=== PATIENT | female | born 1950 | race Caucasian/White ===

== ENCOUNTER 2016-07-14 07:59 | Emergency (ER) | payer BC ==
[2016-07-14 08:16] VITALS: BP 124/87
[2016-07-14] MEDS ORDERED: Sodium Chloride 0.9% 10 ML Syringe FLUSH PRN (08:23)
--- NOTE | 2016-07-14 08:43 | EDM.PDOC ---
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 Pt reports onset of "heartburn" last evening that was persistent throughout the night and continues now. 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 She admits to intense sharp chest pain with coughing, and to shortness of breath at rest. Denies fever, chills, N/V, edema, wheezing, palpitations, hemoptysis, sore throat, rash, petechiae, headache, lightheadedness, syncope, or near syncope. She denies aspiration of food or solids, but states that she very well may have aspirated "stomach acid" during the night. 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) (Protonix) - Related Data Allergies/ADRs: Allergies Allergy/AdvReac Type Severity Reaction Status Date / Time aspirin Allergy Other Verified 07/14/16 08:10 Home Meds: Home Meds [place]-3 Fatty Acids [Fish Oil] 500 mg PO DAILY 12/23/15 [History] Pantoprazole [Protonix] 40 mg PO ACBREAKFAST 12/23/15 [History] Venlafaxine [Effexor XR 24 Hr] 75 mg PO DAILY 12/23/15 [History] Cholecalciferol (Vitamin D3) [Vitamin D3] 1,000 unit PO DAILY 01/10/16 [History] Cyclobenzaprine [Flexeril] 10 mg PO ASDIRECTED PRN 01/10/16 [History] Loratadine [Claritin] 10 mg PO DAILY PRN 01/10/16 [History] Triamterene/Hydrochlorothiazid [Triamterene-HCTZ 37.5-25 MG] 1 tab PO DAILY 01/15 [History] atorvaSTATin [Lipitor] 20 mg PO DAILY 01/10/16 [History] Past Medical History HEENT History: Reports: Impaired vision Other HEENT History: WEARS CORRECTIVE LENSES Cardiovascular History: Reports: High cholesterol, Hypertension Respiratory History: Reports: None Gastrointestinal History: Reports: GERD, PUD Genitourinary History: Reports: None Musculoskeletal History: Reports: Other (see below) Other Musculoskeletal History: CHRONIC BACK PAIN, broken wrist Neurological History: Reports: Migraines Psychiatric History: Reports: None Endocrine/Metabolic History: Reports: None Hematologic History: Reports: None Immunologic History: Reports: None Oncologic (Cancer) History: Reports: None Dermatologic History: Reports: None - Infectious Disease History Infectious Disease History: Reports: Chicken pox, Measles, Mumps - Past Surgical History HEENT Surgical History: Reports: Adenoidectomy, Tonsillectomy GI Surgical History: Reports: EGD Female Surgical History: Reports: Breast reduction, Tubal ligation Neurological Surgical History: Reports: C-Spine, Lumbar spine Musculoskeletal Surgical History: Reports: Other (see below) Other Musculoskeletal Surgeries/Procedures:: "neck and back surgery Social & Family History - Family History Family Medical History: Noncontributory - Tobacco Use Smoking Status *Q: Never Smoker Used Tobacco, but Quit: No Second Hand Smoke Exposure: No - Caffeine Use Caffeine Use: Reports: Coffee - Alcohol Use Days Per Week of Alcohol Use: 7 Number of Drinks Per Day: 1 Total Drinks Per Week: 7 Date of Last Drink: 07/13/16 - Recreational Drug Use Recreational Drug Use: No - Living Situation & Occupation Living situation: Reports: , with spouse Occupation: employed ED ROS GENERAL - Review of Systems Review Of Systems: ROS reveals no pertinent complaints other than HPI. ED EXAM, GENERAL - Physical Exam Exam: See Below Exam Limited By: No limitations General Appearance: alert, WD/WN, no apparent distress, anxious, other ( uncomfortable & acutely ill appearing) Eye Exam: bilateral eye: normal inspection Ears: normal external exam, hearing grossly normal Nose: no blood, nasal drainage (mild clear nasal drainage) Throat/Mouth: Normal inspection, Normal lips, Normal teeth, Normal gums, Normal oropharynx, Normal voice, No airway compromise Head: atraumatic, normocephalic Neck: normal inspection, supple, non-tender, full range of motion. No: lymphadenopathy (L), lymphadenopathy (R) Respiratory/Chest: no respiratory distress, no accessory muscle use, chest non- tender, decreased breath sounds, crackles (bibasilar), rhonchi (intermittent bibasilar L>R). No: rales, wheezing, pleural rub Cardiovascular: normal peripheral pulses, regular rate, rhythm, no edema, no gallop, no JVD, no murmur, no rub GI/Abdominal: normal bowel sounds, soft, no organomegaly, no distention, tender (epigastric, mild) (Female) Exam: Deferred Rectal (Female) Exam: Deferred Back Exam: normal inspection, full range of motion. No: CVA tenderness (L), CVA tenderness (R) Extremities: normal inspection, normal range of motion, non-tender, normal capillary refill, no pedal edema Neurological: alert, oriented, CN II-XII intact, normal cognition, normal gait, no motor/sensory deficits Psychiatric: anxious Skin Exam: Warm, Dry, Intact, Normal color, No rash EKG INTERPRETATION EKG Date: 07/14/16 Time: 08:12 Rhythm: other (SR) Rate (beats/min): 92 [place]: normal P-wave: present QRS: other (isolated Q-wave in lead III) ST-T: normal QT: normal Comparison: NA - no prior EKG EKG Interpretation Comments: No acute ischemic changes. Course - Vital Signs Last Recorded V/S: Last Vital Signs Temp 36.2 C 07/14/16 08:11 Pulse 90 07/14/16 08:56 Resp 20 07/14/16 08:11 BP 124/87 07/14/16 08:11 Pulse Ox 94 L 07/14/16 08:56 - Orders/Labs/Meds Orders: Active Orders 24 hr Category Date Time Status EKG 12 Lead [EKG Documentation Completion] [RC] STAT Care 07/14/16 08:23 Active EKG Documentation Completion [RC] STAT Care 07/14/16 08:10 Active Incentive Spirometry [RT Incentive Spirometry] [RC] Care 07/14/16 09:46 Ordered ASDIRECTED Peripheral IV Care [RC] . DIRECTED Care 07/14/16 08:23 Active RT Aerosol Therapy [RC] ASDIRECTED Care 07/14/16 08:48 Active RT Post Treatment Assessment [RC] Click To Edit Care 07/14/16 09:47 Ordered RT Pre-Treatment Assessment [RC] Click To Edit Care 07/14/16 09:47 Ordered Chest w Cont [CT] Stat Exams 07/14/16 08:47 Taken CULTURE BLOOD [BC] Stat Lab 07/14/16 08:50 Received CULTURE BLOOD [] Stat Lab 07/14/16 08:54 Received CULTURE STREP A CONFIRMATION [] Stat Lab 07/14/16 09:07 Results STREP SCRN A RAPID W CULT CONF [] Stat Lab 07/14/16 09:07 Results Piperacillin/Tazobactam [Zosyn] 3.375 gm Med 07/14/16 09:33 Active Sodium Chloride 0.9% [Normal Saline] 100 ml IV ONETIME Sodium Chloride 0.9% [Normal Saline] 1,000 ml Med 07/14/16 09:33 Active IV .BOLUS Sodium Chloride 0.9% [Saline Flush] Med 07/14/16 08:23 Active 10 ml FLUSH ASDIRECTED PRN Blood Culture x2 Reflex Set [OM.PC] Stat Oth 07/14/16 08:42 Ordered Peripheral IV Insertion Adult [OM.PC] Stat Oth 07/14/16 08:23 Ordered Medication Orders Piperacillin Sod/Tazobactam (Sod 3.375 gm/ Sodium Chloride) 100 mls @ 200 mls/ hr IV ONETIME ONE Stop: 07/14/16 10:02 Last Admin: 07/14/16 09:47 Dose: 200 mls/hr Sodium Chloride (Normal Saline) 1,000 mls @ 999 mls/hr IV .BOLUS ONE Stop: 07/14/16 10:33 Last Admin: 07/14/16 09:39 Dose: 999 mls/hr Sodium Chloride (Saline Flush) 10 ml FLUSH ASDIRECTED PRN PRN Reason: Keep Vein Open Last Admin: 07/14/16 09:39 Dose: 10 ml Labs: Laboratory Tests 07/14/16 07/14/16 07/14/16 Range/Units 08:35 08:35 08:35 WBC 9.3 (5.0-10.0) 10^3/uL RBC 4.39 (4.2-5.4) 10^6/uL Hgb 13.8 (12.0-16.0) g/dL Hct 40.3 (37.0-47.0) % MCV 91.8 (80-100) fL MCH 31.4 (27.0-34.0) pg MCHC 34.2 (33.0-35.0) g/dL Plt Count 213 (150-450) 10^3/uL Neut % (Auto) 73.0 (42.2-75.2) % Lymph % (Auto) 17.8 L (20.5-50.1) % [place] % (Auto) 8.2 H (2-8) % Eos % (Auto) 0.9 L (1.0-3.0) % Baso % (Auto) 0.1 (0.0-1.0) % Sodium 140 (135-145) mmol/L Potassium 3.6 (3.6-5.0) mmol/L Chloride 106 (101-111) mmol/L Carbon Dioxide 25.0 (21.0-31.0) mmol/L Anion Gap 12.6 BUN 21 H (7-18) mg/dL Creatinine 1.1 (0.6-1.3) mg/dL Est Cr Clr Drug Dosing 43.44 mL/min Estimated GFR (MDRD) 50 BUN/Creatinine Ratio 19.09 Glucose 106 H (74-105) mg/dL Lactic Acid (0.5-2.2) mmol/L Calcium 9.3 (8.4-10.2) mg/dl Total Bilirubin 0.2 (0.2-1.0) mg/dL AST 40 (10-42) IU/L ALT 30 (10-60) IU/L Alkaline Phosphatase 59 (42-121) IU/L Total Protein 7.3 (6.7-8.2) g/dl Albumin 4.1 (3.2-5.5) g/dl Globulin 3.2 Albumin/Globulin Ratio 1.28 Amylase 75 (28-100) U/L Lipase 54 H (22-51) U/L 07/14/16 Range/Units 08:50 WBC (5.0-10.0) 10^3/uL RBC (4.2-5.4) 10^6/uL Hgb (12.0-16.0) g/dL Hct (37.0-47.0) % MCV (80-100) fL MCH (27.0-34.0) pg MCHC (33.0-35.0) g/dL Plt Count (150-450) 10^3/uL Neut % (Auto) (42.2-75.2) % Lymph % (Auto) (20.5-50.1) % [place] % (Auto) (2-8) % Eos % (Auto) (1.0-3.0) % Baso % (Auto) (0.0-1.0) % Sodium (135-145) mmol/L Potassium (3.6-5.0) mmol/L Chloride (101-111) mmol/L Carbon Dioxide (21.0-31.0) mmol/L Anion Gap BUN (7-18) mg/dL Creatinine (0.6-1.3) mg/dL Est Cr Clr Drug Dosing mL/min Estimated GFR (MDRD) BUN/Creatinine Ratio Glucose (74-105) mg/dL Lactic Acid 1.3 (0.5-2.2) mmol/L Calcium (8.4-10.2) mg/dl Total Bilirubin (0.2-1.0) mg/dL AST (10-42) IU/L ALT (10-60) IU/L Alkaline Phosphatase (42-121) IU/L Total Protein (6.7-8.2) g/dl Albumin (3.2-5.5) g/dl Globulin Albumin/Globulin Ratio Amylase (28-100) U/L Lipase (22-51) U/L Meds: Medications Generic Name Dose Route Start Last Admin Trade Name Freq PRN Reason Stop Dose Admin Piperacillin Sod/Tazobactam 100 mls @ 200 mls/hr 07/14/16 09:33 07/14/16 09: 47 Sod 3.375 gm/ Sodium Chloride IV 07/14/16 10:02 200 mls/hr ONETIME ONE Administration Sodium Chloride 1,000 mls @ 999 mls/hr 07/14/16 09:33 07/14/16 09:39 Normal Saline IV 07/14/16 10:33 999 mls/hr .BOLUS ONE Administration Sodium Chloride 10 ml 07/14/16 08:23 07/14/16 09:39 Saline Flush FLUSH 10 ml ASDIRECTED PRN Administration Keep Vein Open Discontinued Medications Generic Name Dose Route Start Last Admin Trade Name Freq PRN Reason Stop Dose Admin Albuterol 6.7 gm 07/14/16 09:47 Proventil Hfa INH 07/14/16 09:48 ONETIME ONE Albuterol/Ipratropium 3 ml 07/14/16 08:48 07/14/16 08:54 Duoneb 3.0-0.5 Mg/3 Ml NEB 07/14/16 08:49 3 ml ONETIME ONE Administration Benzonatate 200 mg 07/14/16 09:48 Tessalon Perles PO 07/14/16 09:49 ONETIME ONE Iopamidol 100 ml 07/14/16 08:48 07/14/16 09:22 Isovue-370 (76%) IVPUSH 07/14/16 08:49 65 ml ONETIME ONE Administration Piperacillin Sod/Tazobactam Sod Confirm 07/14/16 09:35 07/14/16 09:47 Zosyn Administered 07/14/16 09:36 Not Given Dose 3.375 gm .ROUTE .STK-MED ONE Pt reports improved SOB and cough following DuoNeb tx. - Radiology Interpretation Free Text/Narrative:: 2V CXR: Asymmetric new anterior segment LLL atelectasis vs infiltrate or infarct per Rad. report. CT Chest w/contrast: No P.E., left ML atelectasis/bronchiectasis, small hiatal hernia, see Rad. report. CT Results Date: 07/14/16 - Re-Assessments/Exams Free Text/Narrative Re-Assessment/Exam: 07/14/16 09:50 I explained the exam findings, results of all diagnostic tests, working diagnosis, and any potential or additionally considered diagnoses, treatment/ disposition plan, self/home care instructions, rational for the diagnosis/ treatment plan/disposition plan, anticipated course of illness, and follow up instructions to the pt and/or pts family or guardian. The pt and/or pts family or guardian acknowledges understanding of the above explanation(s), and of the signs and symptoms which should prompt the return of the pt to the ER should those or any other concerning symptoms develop. Departure - Departure Time of Disposition: 09:53 Disposition: Home, Self-Care 01 Condition: fair Clinical Impression: Atypical chest pain, Acute bronchitis with bronchospasm, Hiatal hernia Aspiration into airway Qualifiers: Encounter type: initial encounter Qualified Code(s): T17.908A - Unspecified foreign body in respiratory tract, part unspecified causing other injury, initial encounter Gastroesophageal reflux disease Qualifiers: Esophagitis presence: esophagitis presence not specified Qualified Code(s): K21.9 - Gastro-esophageal reflux disease without esophagitis Instructions: Acute Bronchitis, Bronchospasm, Adult, Hiatal Hernia Forms: ED Department Discharge Additional Instructions: Rx: Clindamycin 300mg Rx: Z-Igor 250mg Continue Protonix as prescribed. Follow up in clinic in 3 to 4 days for recheck. Return to ER if worse at any time. - My Orders Last 24 Hours: My Active Orders 07/14/16 08:10 EKG Documentation Completion [RC] STAT 07/14/16 08:23 EKG 12 Lead [EKG Documentation Completion] [RC] STAT Peripheral IV Care [RC] . DIRECTED Sodium Chloride 0.9% [Saline Flush] 10 ml FLUSH ASDIRECTED PRN Peripheral IV Insertion Adult [OM.PC] Stat 07/14/16 08:42 Blood Culture x2 Reflex Set [OM.PC] Stat 07/14/16 08:47 Chest w Cont [CT] Stat 07/14/16 08:48 RT Aerosol Therapy [RC] ASDIRECTED 07/14/16 08:50 CULTURE BLOOD [BC] Stat 07/14/16 08:54 CULTURE BLOOD [BC] Stat 07/14/16 09:07 CULTURE STREP A CONFIRMATION [RM] Stat STREP SCRN A RAPID W CULT CONF [RM] Stat 07/14/16 09:33 Piperacillin/Tazobactam [Zosyn] 3.375 gm Sodium Chloride 0.9% [Normal Saline] 100 ml IV ONETIME Sodium Chloride 0.9% [Normal Saline] 1,000 ml IV .BOLUS 07/14/16 09:46 Incentive Spirometry [RT Incentive Spirometry] [RC] ASDIRECTED 07/14/16 09:47 RT Post Treatment Assessment [RC] Click To Edit RT Pre-Treatment Assessment [RC] Click To Edit - Assessment/Plan Last 24 Hours: My Active Orders 07/14/16 08:10 EKG Documentation Completion [RC] STAT 07/14/16 08:23 EKG 12 Lead [EKG Documentation Completion] [RC] STAT Peripheral IV Care [RC] . DIRECTED Sodium Chloride 0.9% [Saline Flush] 10 ml FLUSH ASDIRECTED PRN Peripheral IV Insertion Adult [OM.PC] Stat 07/14/16 08:42 Blood Culture x2 Reflex Set [OM.PC] Stat 07/14/16 08:47 Chest w Cont [CT] Stat 07/14/16 08:48 RT Aerosol Therapy [RC] ASDIRECTED 07/14/16 08:50 CULTURE BLOOD [BC] Stat 07/14/16 08:54 CULTURE BLOOD [BC] Stat 07/14/16 09:07 CULTURE STREP A CONFIRMATION [RM] Stat STREP SCRN A RAPID W CULT CONF [RM] Stat 07/14/16 09:33 Piperacillin/Tazobactam [Zosyn] 3.375 gm Sodium Chloride 0.9% [Normal Saline] 100 ml IV ONETIME Sodium Chloride 0.9% [Normal Saline] 1,000 ml IV .BOLUS 07/14/16 09:46 Incentive Spirometry [RT Incentive Spirometry] [RC] ASDIRECTED 07/14/16 09:47 RT Post Treatment Assessment [RC] Click To Edit RT Pre-Treatment Assessment [RC] Click To Edit
[2016-07-14] MEDS ORDERED: Iopamidol 755 Mg/ML 100 ML Bottle IVPUSH ONE (08:48)
[2016-07-14] MEDS ORDERED: Albuterol/Ipratropium 3.0-0.5 MG/3 ML Neb Soln NEB ONE (08:48)
--- NOTE | 2016-07-14 08:48 | CR ---
Clinical history: 66-year-old female cough, chest pain (O2 sat 94%) and tachycardia. Interpretation: Abnormal. Asymmetric new anterior segment left lower lobe atelectasis, infiltrate or infarct (compared to 22 S eptember 2016 film). Normal cardiac silhouette without cephalization of vascular flow, signs of alveolar edema or depende nt effusion. No lung mass, hilar lymphadenopathy or other focal lobar consolidation.
[2016-07-14] MEDS ORDERED: Piperacillin/Tazobactam 3.375 GM in Sodium Chloride 0.9% 100 ML IV ONE (09:33)
[2016-07-14] MEDS ORDERED: Sodium Chloride 0.9% 1,000 ML IV ONE (09:33)
[2016-07-14] MEDS ORDERED: Albuterol 6.7 GM Inhaler INH ONE (09:47)
[2016-07-14] MEDS ORDERED: Benzonatate 100 MG Cap PO ONE (09:48)
--- NOTE | 2016-07-14 10:02 | CT ---
CLINICAL HISTORY: 66-year-old female with chest pain, cough, decreased O2 saturation and tachycardia . Rule out pulmonary embolism or other thoracic abnormality ("new left lower lobe consolidation"). SCAN TECHNIQUE: Volume acquisition of data from chest (thorax, lung and mediastinum) obtained during the intravenous administration of 65 cc nonionic Isovue 370 contrast (5 cc/sec via injector) while the patient was lying supine on the Siemens multislice CT scanner [place], [place]. All data archived in the PACS system for storage, reformatting and study. INTERPRETATION: 1. Hiatus hernia incarcerated in the lower middle mediastinum. 2. Peribronchial "cuffing" and patchy anterior segment left lower lobe atelectasis (aspiration?). 3. Normal cardiac silhouette without cephalization of vascular flow, signs of alveolar edema or depe ndent pleural effusion. Normal caliber thoracic aorta (no aneurysm or dissection). 4. No lung mass or hilar or mediastinal lymphadenopathy. No lobar pneumonia. Several small right ulises g cysts. 5. No sign of intraluminal filling defect or thrombus. No peripheral pleural-based wedge shaped infa rcts, lobar consolidation or pleural effusions, i.e., low or no risk for pulmonary embolism. 6. Incidentally noted normal gallbladder, liver, spleen and pancreas. CONCLUSION: Hiatus hernia. Bronchitis and left lower lobe atelectasis. No lobar pneumonia, lung mass or pulmonary embolism.
--- NOTE | 2016-07-18 13:16 | EKG ---
07/14/2016 - REFUGIO JACOB - TIME: 8:12 a.m. EKG per my reading shows sinus rhythm with no acute ST changes. [facility] /[id number]
== END 2016-07-14 11:03 | disposition home or self-care (01) ==
LOC: DL.ED 07:59
DX: J20.9 Acute bronchitis, unspecified (principal); K44.9 Diaphragmatic hernia without obstruction or gangrene; K21.9 Gastro-esophageal reflux disease without esophagitis; T17.908A Unspecified foreign body in respiratory tract, part unspecified causing other injury, initial encounter; E78.00 Pure hypercholesterolemia, unspecified; I10 Essential (primary) hypertension; Z88.6 Allergy status to analgesic agent; Z79.899 Other long term (current) drug therapy; Z98.890 Other specified postprocedural states; Z98.51 Tubal ligation status
CPT/HCPCS: 36415; 71020; 71260; 80053; 82150; 83605; 83690; 85025; 87040; 87081; 87430; 93005; 94010; 94640; 99285; A9270; J2543; J7030; J7050; Q9967

== ENCOUNTER 2017-10-09 07:56 | Day surgery (SDC) | payer MEDICARE, BC ==
[2017-10-09] MEDS ORDERED: Midazolam 1 MG/ML 2 ML SDV IV ONE ×9 (07:57→09:25)
[2017-10-09] MEDS ORDERED: fentaNYL 100 MCG/2 ML SDV IV ONE ×4 (07:57→09:13)
[2017-10-09] MEDS ORDERED: Dextrose 5%-0.45% NaCl 1,000 ML IV SCH (08:15)
[2017-10-09] MEDS ORDERED: Benzocaine 20% Oral Spray 59.2 ML Canister MUCMEM ONE (08:34)
[2017-10-09] MEDS ORDERED: fentaNYL 100 MCG/2 ML SDV ONE (08:41)
[2017-10-09] MEDS ORDERED: Midazolam 1 MG/ML 2 ML SDV ONE (08:41)
[2017-10-09] MEDS ORDERED: Benzocaine 20% Oral Spray 59.2 ML Canister ONE (08:42)
[2017-10-09 11:55] VITALS: BP 105/57
--- NOTE | 2017-10-09 12:23 | OR ---
DATE: 10/09/2017 INDICATION FOR PROCEDURE: This is a 67-year-old female presents for colonoscopy. She has change of bowel function and some incontinence. POSTOPERATIVE DIAGNOSIS: This is a 67-year-old female, presents for colonoscopy. She has change of bowel function and some incontinence. PROCEDURE: Total colonoscopy. ANESTHESIA: Conscious sedation with IV Versed and fentanyl. SPECIMEN: None. FINDINGS: Normal colonoscopy. RECOMMENDATION: Followup colonoscopy as needed for symptoms. DESCRIPTION OF PROCEDURE: After adequate preparation, a colonoscope was inserted into the rectum. This was quite difficult to advance all the way to the cecum that had a very difficult time keeping the colon straight to advance the scope and multiple loops were formed as the scope advanced. I withdrew the scope into the rectum 2 different times to be able to keep the colon from looping. Eventually, I was able to pass this all the way to the cecum and confirmation of the cecum was made by visualization of the ileocecal valve and palpation in the right lower quadrant. The bowel prep was adequate. On withdrawal of the scope, no abnormalities were noted. Rectal examination was normal. She also does not have any internal hemorrhoids. No physical reason that I can see for incontinence. Air was suctioned from the colon. [facility] /[id number]
--- NOTE | 2017-10-09 12:41 | OR ---
DATE: 10/09/2017 PREOPERATIVE DIAGNOSIS: Gastroesophageal reflux disease. POSTOPERATIVE DIAGNOSIS: Gastroesophageal reflux disease. PROCEDURE: Esophagogastroduodenoscopy. ANESTHESIA: Conscious sedation with IV Versed and fentanyl. SPECIMEN: None. OPERATIVE FINDINGS: Very small hiatal hernia of no consequence, otherwise, entirely normal. RECOMMENDATION: Follow up as needed. INDICATION FOR PROCEDURE: This 67-year-old female has symptoms of GERD. PROCEDURE IN DETAIL: After adequate preparation, a gastroscope was inserted into the esophagus. This was easily passed down to the EG junction. She showed a small hiatal hernia of about a centimeter, but no evidence of reflux, esophagitis, masses, or strictures. The scope was advanced into the stomach. Both forward and retroflexed views were done and were normal. The scope was advanced through the pylorus, and the first and second part of the duodenum were also normal. No photographs or biopsies were taken as they were not indicated. Air was suctioned from the stomach, and the scope was removed. [facility] /[id number]
== END 2017-10-09 11:40 | disposition home or self-care (01) ==
LOC: DL.ENDO 07:56
PROVIDERS: ATTEND Surgery
DX: K21.9 Gastro-esophageal reflux disease without esophagitis (principal); K44.9 Diaphragmatic hernia without obstruction or gangrene; R19.4 Change in bowel habit; R15.9 Full incontinence of feces; Z79.899 Other long term (current) drug therapy
CPT/HCPCS: 43235; 45378; J7042; J2250; J3010

== ENCOUNTER 2021-05-07 01:13 | Emergency (ER) | payer BC, MEDICARE ==
[2021-05-07] MEDS ORDERED: Aspirin 81 MG Tab.Chew PO ONE (01:39)
[2021-05-07 01:42] VITALS: BP 118/63; PULSE 84
[2021-05-07 01:56] LABS: ANION GAP 12.9 mEq/L (7-13)
[2021-05-07] MEDS ORDERED: GI Cocktail Oral Solution 30 ML PO ONE (02:04)
== END 2021-05-07 04:37 | disposition home or self-care (01) ==
LOC: DL.ED 01:13
DX: R07.9 Chest pain, unspecified (principal); K21.9 Gastro-esophageal reflux disease without esophagitis; E78.00 Pure hypercholesterolemia, unspecified; I10 Essential (primary) hypertension; Z79.899 Other long term (current) drug therapy
CPT/HCPCS: 36415; 71045; 80053; 83605; 84484; 85025; 85379; 87040; 93005; 93010; 99285; 99285-25; A9270-GY

== ENCOUNTER 2022-09-14 14:59 | Emergency (ER) | payer MEDICARE ==
[2022-09-14 16:29] VITALS: BP 123/75; PULSE 68
== END 2022-09-14 16:26 | disposition home or self-care (01) ==
LOC: DL.ED 14:59
DX: R07.0 Pain in throat (principal); I10 Essential (primary) hypertension; E78.00 Pure hypercholesterolemia, unspecified; Z79.899 Other long term (current) drug therapy
CPT/HCPCS: 70360; 99283